=== PATIENT | female | born 1925 | race Caucasian/White ===

== ENCOUNTER 2016-05-27 13:42 | Inpatient (IN) | payer OTHER ==
--- NOTE | 2016-05-27 17:49 | EDPRACDOC ---
- General Information Information Source: Patient - History of Present Illness Onset: CORRAL BOSS Medications/Treatment [facility]OSS EMS Treatment BLS HPI: PT PRESENTS TODAY WITH INCREASING WEAKNESS AND PAIN TO RIGHT LOWER EXTREMITY X 10 DAYS. PT STATES THAT SHE HAS BEEN RECEIVING IM INJECTIONS OF ROCEPHIN AT [facility]. 10 DAYS AGO, SHE RECEIVED AN INJECTION IN THE GLUTEUS THAT CAUSED SEVERE PAIN THAT RADIATED DOWN RIGHT LEG. INCREASING PAIN/WEAKNESS SINCE. DENIES INCONTINENCE, FEVER, DYSURIA. NO APPARENT DISTRESS. FAMILY VERY CONCERNED THAT PTS AMBULATION HAS GRADUALLY WORSENED OVER THE PAST 10 DAYS. Mechanism: Reports: Penetrating Trauma Circumstances: Reports: Other History of: Reports: None Severity: Reports: Moderate Able to Bear Weight: No Associated Signs & Symptoms: Reports: Numbness Pain In: Reports: Hip, Thigh <Josefina Calles - Last Filed: 05/27/16 17:52> - History of Present Illness Medications/Treatment CORRAL BOSS EMS Treatment BLS <Jhonny Carvajal - Last Filed: 05/27/16 20:18> - General Information Chief Complaint: Lower Leg Pain Stated Complaint: INJECTION IN RT HIP & IT HIT A NERVE Time Seen by Provider: 05/27/16 16:48 Home Medications: Home Medications Cholecalciferol (Vitamin D3) [Vitamin D3] 1,000 unit PO DAILY 05/27/16 Gabapentin [Neurontin] 100 mg PO HS 05/27/16 Oxybutynin [Ditropan] 5 mg PO BID 05/27/16 Oxycodone Immediate Release [Oxycodone Immediate Release (OxyIR)] 10 mg PO Q6H PRN 05/27/16 Ranitidine [Zantac] 150 mg PO HS 05/27/16 Allergies/Adverse Reactions: Allergies Allergy/AdvReac Type Severity Reaction Status Date / Time morphine Allergy Nausea/Vomi Verified 05/27/16 13:54 ting tramadol Allergy Nausea/Vomi Verified 05/27/16 13:54 ting - Treatment Prior to ED Arrival Reported Medications/Treatment [facility]OSS EMS Treatment BLS <Josefina Calles - Last Filed: 05/27/16 17:52> - Treatment Prior to ED Arrival Reported Medications/Treatment [facility]RAL [facility]OSS EMS Treatment BLS <Jhonny Carvajal - Last Filed: 05/27/16 20:18> ED Past Medical History - History Reviewed Yes Nurses notes reviewed and agree except as marked - Patient Medical History GI/ History: Reports: Gastroesophageal Reflux Psychological History: Denies: Depression Systemic History: Denies: Cancer - Social Medical History Smoking Status: Never smoker <Josefina Calles - Last Filed: 05/27/16 17:52> EDM Review of Systems - Review of Systems ROS Negative Except as Marked: Yes All systems reviewed and were negative except as marked Constitutional: No Symptoms Reported Respiratory: No Symptoms Reported Cardiovascular: No Symptoms Reported Gastrointestinal: No Symptoms Reported Genitourinary: No Symptoms Reported Neurological: Gait Difficulty, Numbness, Weakness Musculoskeletal: Femur Integumentary: No Symptoms Reported <Josefina Calles Neha - Last Filed: 05/27/16 17:52> - Physical Exam Constitutional: Alert (Awake), No apparent distress Oriented to: Time, Person, Place Last recorded Vital Signs: Last Vital Signs Temp 97.4 F L 05/27/16 13:46 Pulse 58 L 05/27/16 16:55 Resp 18 05/27/16 16:55 BP 167/77 05/27/16 16:55 Pulse Ox 98 05/27/16 16:55 Oxygen Pulse Oxygen Saturation 98 O2 Device Room Air Oxygen Flow Rate Fraction of Inspired Oxygen ( FIO2) - HEENT Head: Normal Eye Exam: Normal Neck: Normal, Denies Pain, Midline - Respiratory/Cardiovascular Respiratory: Normal - CTA Cardiovascular: Normal - GI Auscultation: Normal Palpation: Normal Tenderness: Non tender - Musculoskeletal Back: Other (NOTED INJECTION WOUND TO RIGHT BUTTOCK; NO SWELLING/DISCHARGE OR SIGNS OF INFECTION AT THE SITE; PT STATES THAT THE BUTTOCK IS "SORE") Extremities: Normal, Other (NOTE: FEMORAL/PEDAL PULSES EQUAL AND NORMAL DERMATOMAL SENSATIONS INTACT DORSI/PLANTAR FLEXION STRONG/EQUAL HIP EXTENSION EQUAL, BUT WITH PAIN TO RIGHT HIP; SKIN P/W/D W/OUT PETECHIA/SWELLING) - Integumentary Skin: Normal Lymphatics: Normal - Neurologic Cerebellar: Normal Mood Description: Normal Thought: Coherent Perception: Normal <Josefina Calles - Last Filed: 05/27/16 17:52> - Physical Exam Last recorded Vital Signs: Last Vital Signs Temp 97.4 F L 05/27/16 13:46 Pulse 60 05/27/16 19:33 Resp 18 05/27/16 19:33 BP 181/80 H 05/27/16 19:33 Pulse Ox 97 05/27/16 19:33 Oxygen Pulse Oxygen Saturation 97 O2 Device Room Air Oxygen Flow Rate Fraction of Inspired Oxygen ( FIO2) <Jhonny Carvajal - Last Filed: 05/27/16 20:18> - Additional Information CARE ENDORSED TO DR. CARVAJAL AT 1800. NOTE: FEMORAL/PEDAL PULSES EQUAL AND NORMAL DERMATOMAL SENSATIONS INTACT DORSI/PLANTAR FLEXION STRONG/EQUAL HIP EXTENSION EQUAL, BUT WITH PAIN TO RIGHT HIP SKIN P/W/D W/OUT PETECHIA/SWELLING <Josefina Calles - Last Filed: 05/27/16 17:52> - Results 05/27/16 18:09 05/27/16 18:09 WBC 13.8 xk/uL (3.8-10.8) H 05/27/16 18:09 RBC 3.88 xM/uL (4.20-5.40) L 05/27/16 18:09 Hgb 11.3 g/dL (12.0-16.0) L 05/27/16 18:09 Hct 33.7 % (36-47) L 05/27/16 18:09 MCV 87 fL (81-99) 05/27/16 18:09 MCH 29.1 pg (27-32) 05/27/16 18:09 MCHC 33.5 g/dl (33-36) 05/27/16 18:09 RDW 13.6 % (11.5-14.5) 05/27/16 18:09 Plt Count 282 xk/uL (130-400) 05/27/16 18:09 MPV 9.1 fL (7.4-10.4) 05/27/16 18:09 Neut % (Auto) 78.1 % (45-76) H 05/27/16 18:09 Lymph % (Auto) 4.1 % (17-44) L 05/27/16 18:09 [place] % (Auto) 17.6 % (3-10) H 05/27/16 18:09 Eos % (Auto) 0.0 % (0-5) 05/27/16 18:09 Baso % (Auto) 0.2 % (0-2) 05/27/16 18:09 Absolute Neuts (auto) 10.76 xk/uL (1.7-8.2) H 05/27/16 18:09 Absolute Lymphs (auto) 0.55 xk/uL (0.65-4.75) L 05/27/16 18:09 Sodium 120 mEq/L (137-146) L* 05/27/16 18:09 Potassium 5.3 mEq/L (3.5-5.1) H 05/27/16 18:09 Chloride 87 mEq/L (98-107) L 05/27/16 18:09 Carbon Dioxide 26 mMOL/L (22-33) 05/27/16 18:09 Anion Gap 12 mEq/L (8-16) 05/27/16 18:09 BUN 47 MG/DL (7-17) H 05/27/16 18:09 Creatinine 1.60 MG/DL (0.52-1.04) H 05/27/16 18:09 Estimated GFR (MDRD) 30 mL/min (>=60) L 05/27/16 18:09 Glucose 145 MG/DL (70-99) H 05/27/16 18:09 Calculated Osmolality 247 MOs/Kg (270-290) L 05/27/16 18:09 Calcium 8.6 MG/DL (8.4-10.2) 05/27/16 18:09 Corrected Calcium 9.1 MG/DL (8.4-10.2) 05/27/16 18:09 Total Bilirubin 1.0 MG/DL (0.2-1.3) 05/27/16 18:09 AST 42 IU/L (14-36) H 05/27/16 18:09 ALT 30 IU/L (9-52) 05/27/16 18:09 Alkaline Phosphatase 99 IU/L (55-165) 05/27/16 18:09 Total Protein 7.0 G/DL (6.3-8.2) 05/27/16 18:09 Albumin 3.5 G/DL (3.5-5.0) 05/27/16 18:09 Urine Color Yellow 05/27/16 18:54 Urine Clarity Clear 05/27/16 18:54 Urine pH 6.0 (5.0-8.0) 05/27/16 18:54 Ur Specific [place] 1.010 (1.003-1.035) 05/27/16 18:54 Urine Protein Neg (NEG/TRACE) 05/27/16 18:54 Urine Glucose (UA) Neg (NEGATIVE) 05/27/16 18:54 Urine Ketones Neg (NEGATIVE) 05/27/16 18:54 Urine Occult Blood Neg (NEG/TRACE) 05/27/16 18:54 Urine Nitrite Neg (NEGATIVE) 05/27/16 18:54 Urine Bilirubin Neg (NEGATIVE) 05/27/16 18:54 Urine Urobilinogen 0.2 MG/DL (0-1) 05/27/16 18:54 Ur Leukocyte Esterase Neg (NEGATIVE) 05/27/16 18:54 Urine RBC 2-5 (0-5) 05/27/16 18:54 Urine WBC 20-30 (0-5) H 05/27/16 18:54 Ur Epithelial Cells Occ 05/27/16 18:54 Urine Bacteria Few (NEG/FEW) 05/27/16 18:54 Lab Results 05/27/16 05/27/16 05/27/16 18:54 18:09 18:09 WBC 13.8 H RBC 3.88 L Hgb 11.3 L Hct 33.7 L MCV 87 MCH 29.1 MCHC 33.5 RDW 13.6 Plt Count 282 MPV 9.1 Neut % (Auto) 78.1 H Lymph % (Auto) 4.1 L [place] % (Auto) 17.6 H Eos % (Auto) 0.0 Baso % (Auto) 0.2 Absolute Neuts (auto) 10.76 H Absolute Lymphs (auto) 0.55 L Sodium 120 L* Potassium 5.3 H Chloride 87 L Carbon Dioxide 26 Anion Gap 12 BUN 47 H Creatinine 1.60 H Estimated GFR (MDRD) 30 L Glucose 145 H Calculated Osmolality 247 L Calcium 8.6 Corrected Calcium 9.1 Total Bilirubin 1.0 AST 42 H ALT 30 Alkaline Phosphatase 99 Total Protein 7.0 Albumin 3.5 Urine Color Yellow Urine Clarity Clear Urine pH 6.0 Ur Specific [place] 1.010 Urine Protein Neg Urine Glucose (UA) Neg Urine Ketones Neg Urine Occult Blood Neg Urine Nitrite Neg Urine Bilirubin Neg Urine Urobilinogen 0.2 Ur Leukocyte Esterase Neg Urine RBC 2-5 Urine WBC 20-30 H Ur Epithelial Cells Occ Urine Bacteria Few <Jhonny Carvajal - Last Filed: 05/27/16 20:18> <Josefina Calles - Last Filed: 05/27/16 17:52> - Departure Yes I personally saw and evaluated the patient. Disposition: Admit IP To This Hospital Education/Counseling Given To: Patient Education/Counseling Given Regarding: Diagnosis, Treatment, Prognosis Decision to Admit Time: 20:18 Decision to admit date: 05/27/16 Decision to admit: from ED - Physician Consulted Hospitalist Time Called: 20:18 Provider Called: Yefri Ac Time Mailroom Courier Returned Call: 20:18 <Jhonny Carvajal - Last Filed: 05/27/16 20:18> - Departure Condition: Fair Final Diagnosis: Ambulatory dysfunction, Hyponatremia Fracture of left superior pubic ramus Qualifiers: Encounter type: initial encounter Fracture type: closed Qualified Code(s): S32.512A - Fracture of superior rim of left pubis, initial encounter for closed fracture Fracture of inferior pubic ramus Qualifiers: Encounter type: initial encounter Fracture type: closed Laterality: left Qualified Code(s): S32.592A - Other specified fracture of left pubis, initial encounter for closed fracture Sacral insufficiency fracture Qualifiers: Encounter type: initial encounter Qualified Code(s): M84.48XA - Pathological fracture, other site, initial encounter for fracture Referrals: Guanakito Flores MD [Primary Care Provider] - One Week
[2016-05-27] MEDS ORDERED: ONDANSETRON HCL 4 MG/2 ML VIAL IV ONE (17:53)
[2016-05-27] MEDS ORDERED: HYDROmorphone 1 MG INJECTION IV ONE (17:53)
[2016-05-27 18:26] LABS: AUTOMATED BASOPHIL 0.2 % (0-2); AUTOMATED LYMPH 4.1 % (17-44); AUTOMATED MONOCYTE 17.6 % (3-10); AUTOMATED NEUTROPHIL 78.1 % (45-76); MPV 9.1 fL (7.4-10.4)
[2016-05-27 18:36] LABS: BLOOD UREA NITROGEN 47 MG/DL (7-17); CALC CORRECTED 9.1 MG/DL (8.4-10.2); CALCIUM 8.6 MG/DL (8.4-10.2); CALCULATED OSMOLALITY 247 MOs/Kg (270-290); CHLORIDE 87 mEq/L (98-107); GLUCOSE 145 MG/DL (70-99)
[2016-05-27 18:46] LABS: SODIUM LEVEL 120 mEq/L (137-146)
[2016-05-27 19:22] LABS: WBC/URINE 20-30 (0-5)
[2016-05-27 19:24] LABS: LEUKOCYTES/URINE NEG (NEGATIVE); NITRITE/URINE NEG (NEGATIVE); URINE OCCULT BLOOD NEG (NEG/TRACE)
--- NOTE | 2016-05-27 19:40 | DIRPT ---
CLINICAL DATA: 89-year-old female with right lower extremity weakness and right hip pain after intramuscular injection of antibiotic 10 days ago. Initial encounter. EXAM: CT PELVIS WITHOUT CONTRAST TECHNIQUE: Multidetector CT imaging of the pelvis was performed following the standard protocol without intravenous contrast. COMPARISON: CT Abdomen and Pelvis 01/27/2008. FINDINGS: Comminuted fractures of the superior and inferior pubic rami on the left at the confluence near the pubic symphysis. Underlying osteopenia. Bilateral sacral insufficiency fractures, more apparent on the left (series 3, image 19). SI joints remain within normal limits. Advanced degenerative changes in the visible lower lumbar spine. No acetabular or hip fracture identified bilaterally. No right pubic ramus fracture identified. No proximal femur fracture identified. Visualized proximal lower extremity noncontrast muscle groups appear within normal limits. No fluid collection identified. Diffuse body wall stranding suggesting a degree of anasarca. No pelvic free fluid. Surgically absent uterus and diminutive or absent adnexa. Gaseous distension of the rectum with some stool. Retained stool throughout the sigmoid colon with moderate to severe diverticulosis, but no active inflammation identified. Negative urinary bladder. Retained stool throughout the other visible colonic segments. The appendix appears normal. No dilated distal small bowel. No significant large vessel atherosclerosis identified. No IV contrast administered. IMPRESSION: 1. Bilateral sacral insufficiency fractures. Comminuted comminuted medial Left superior and inferior pubic ramus fractures. No other acute osseous abnormality identified. 2. Diffuse body wall stranding suggesting anasarca. No other soft tissue abnormality identified about the pelvis. 3. Diverticulosis of the sigmoid colon. Otherwise negative visualized pelvic viscera. Electronically Signed By: Leesa Heart M.D. On: 05/27/2016 19:38
--- NOTE | 2016-05-27 20:28 | HISTPHYS ---
- Chief Complaint can't walk, weakness - History of Present Illness PRIMARY CARE PROVIDER: Delaney HPI: The patient is an 89 yo woman who presents with weakness and inability to walk. She was in her usual state of health until this week, when she started becoming weaker especially in the legs. She is at the point that she cannot walk at all. The patient has some mild dementia. She does not remember falling. She does admit to some pain in both hips. A relative who is present gives additional history: the patient has had more fatigue and somnolence lately. She has not been eating or drinking well at all. Onset: this week. Duration: Progressively worsening. Location: Bilateral lower extremities, hips, and pelvis. Radiation: None. Character: Generalized weakness of both lower extremities with inability to walk. Bilateral pain in the hips and pelvis. Alleviated by: Nothing. Exacerbated by: Nothing. Associated Symptoms: Weakness in both legs. Inability to walk. Bilateral hip and pelvis pain. Fatigue. Somnolence. Markedly decreased PO intake. Relative reports the patient has frequent urinary tract infections and is just finishing up 6 days of nitrofurantoin. Treatments: none at home except usual medications and also nitrofurantoin as above. - Medical History GI/ History: Reports: Urinary Tract Infection (recurrent), Gastroesophageal Reflux (Dr. Berman EGD 05/11/08 Schatzki ring, previous ulcer healed, hiatal hernia.), Diverticulosis (Dr. Berman colonoscopy 02/17/08. Sm int hemorrhoids, diverticulosis.) Musculoskeletal History: Reports: Arthritis (and compression fractures) Systemic History: Denies: Cancer Psychological History: Denies: Depression May have some mild dementia. 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 - Surgical History Reports: Hysterectomy (Abdominal hysterectomy with bilateral salpingo- oophorectomy.), Other (Total knee arthroplasty) - Medictions/Allergies Allergies morphine Allergy (Verified 05/27/16 13:54) Nausea/Vomiting tramadol Allergy (Verified 05/27/16 13:54) Nausea/Vomiting Current Medication List: Reviewed Home Medications Cholecalciferol (Vitamin D3) [Vitamin D3] 1,000 unit PO DAILY 05/27/16 Gabapentin [Neurontin] 100 mg PO HS 05/27/16 Oxybutynin [Ditropan] 5 mg PO BID 05/27/16 Oxycodone Immediate Release [Oxycodone Immediate Release (OxyIR)] 10 mg PO Q6H PRN 05/27/16 Ranitidine [Zantac] 150 mg PO HS 05/27/16 - Family History Reports: Cardiac Disorders (Heart disease). 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 - Review of Systems GENERAL: No Fever, chills, or diaphoresis. Positive for fatigue/malaise. Decreased PO intake. HEENT: No ear pain or discharge. No nasal discharge or bleeding. No throat pain or swelling. No eye pain or eye redness. RESPIRATORY: No cough, wheezing, or shortness of breath. CARDIOVASCULAR: No chest pain or palpitations. GI: No abdominal pain, nausea, vomiting, diarrhea, constipation, or bloody stool. NEUROLOGICAL: No headache or focal weakness. INTEGUMENT: no rashes, itching, or lesions. LYMPHATIC SYSTEM: no lymph node swelling or pain. MUSCULOSKELETAL: Weakness in both legs. Inability to walk. Bilateral hip and pelvis pain. No joint swelling. GENITOURINARY: No dysuria or hematuria. ENDOCRINE: No polyuria or polydipsia. HEME: No chronic anemia, bleeding, or easy bruising. - Physical Exam Vital Signs: Initial Vitals Temperature 97.4 F L 05/27/16 13:46 Pulse Rate 57 L 05/27/16 13:46 Respiratory Rate 20 05/27/16 13:46 Blood Pressure 176/80 05/27/16 13:46 Pulse Oxygen Saturation 99 05/27/16 13:46 Vital Signs - 24 hr 05/27/16 05/27/16 05/27/16 13:46 16:55 18:08 Temperature 97.4 F L Pulse Rate 57 L 58 L 64 Respiratory 20 18 18 Rate Blood Pressure 176/80 167/77 185/81 H Pulse Oxygen 99 98 97 Saturation 05/27/16 19:33 Temperature Pulse Rate 60 Respiratory 18 Rate Blood Pressure 181/80 H Pulse Oxygen 97 Saturation Weight: 59 kg Height: 5 feet 1 inch BMI: 24.6 - Other Exam Other Exam Findings: GENERAL: Ill-appearing, well nourished, in acute distress. HEENT: Normocephalic, atraumatic; pupils equal and round. Nares patent, without discharge or bleeding. No oropharyngeal lesions or erythema. Mucous membranes are dry. NECK: is supple, no masses, trachea midline. RESPIRATORY: Clear to auscultation bilaterally. Chest wall movements are symmetric. No use of accessory muscles to breathe. No wheezing, rales, rhonchi. CARDIOVASCULAR: Normal S1, S2. No murmurs, rubs, or gallops. PMI non-displaced. Carotids: no carotid bruits. No bradycardia or tachycardia. DP pulses 2+ bilaterally. GI: soft, nontender, non-distended, normal active bowel sounds. No hepatosplenomegaly. INTEGUMENT: Clean, dry, and intact. No rashes. No lesions. MUSCULOSKELETAL: Moving all extremities. No cyanosis. No clubbing. Edema: 1+ lower extremity edema bilaterally. Tenderness over left and right pelvis bilaterally. NEUROLOGICAL: Cranial nerves 2-12 grossly intact. Reflexes: 2+ bilaterally. Babinski: toes downgoing bilaterally. Intact Finger to nose. Sensory grossly intact to light touch. Intact rapid alternating movements bilaterally. No pronator drift. Motor 5/5 in upper extremities. 2/5 in lower extremities and 3+/5 for plantar flexion, symmetric. PSYCHIATRIC: Fully oriented. Normal and appropriate affect. LYMPHATIC: No cervical lymphadenopathy. No supraclavicular lymphadenopathy. - Lab Results Laboratory Results - last 24 hr 05/27/16 05/27/16 05/27/16 18:09 18:09 18:54 WBC 13.8 H RBC 3.88 L Hgb 11.3 L Hct 33.7 L MCV 87 MCH 29.1 MCHC 33.5 RDW 13.6 Plt Count 282 MPV 9.1 Neut % (Auto) 78.1 H Lymph % (Auto) 4.1 L Casey % (Auto) 17.6 H Eos % (Auto) 0.0 Baso % (Auto) 0.2 Absolute Neuts (auto) 10.76 H Absolute Lymphs (auto) 0.55 L Sodium 120 L* Potassium 5.3 H Chloride 87 L Carbon Dioxide 26 Anion Gap 12 BUN 47 H Creatinine 1.60 H Estimated GFR (MDRD) 30 L Glucose 145 H Calculated Osmolality 247 L Calcium 8.6 Corrected Calcium 9.1 Total Bilirubin 1.0 AST 42 H ALT 30 Alkaline Phosphatase 99 Total Protein 7.0 Albumin 3.5 Urine Color Yellow Urine Clarity Clear Urine pH 6.0 Ur Specific [place] 1.010 Urine Protein Neg Urine Glucose (UA) Neg Urine Ketones Neg Urine Occult Blood Neg Urine Nitrite Neg Urine Bilirubin Neg Urine Urobilinogen 0.2 Ur Leukocyte Esterase Neg Urine RBC 2-5 Urine WBC 20-30 H Ur Epithelial Cells Occ Urine Bacteria Few - Diagnostic Findings Chest x-ray, viewed personally: EXAM: PORTABLE CHEST 1 VIEW COMPARISON: Chest radiograph 06/13/2007 FINDINGS: Cardiomediastinal silhouette is normal. Mediastinal contours appear intact. There is no evidence of focal airspace consolidation, pleural effusion or pneumothorax. Osseous structures are without acute abnormality. Vertebroplasty of the lower thoracic spine is seen. Soft tissues are grossly normal. IMPRESSION: No active disease. CT Pelvis: CLINICAL DATA: 89-year-old female with right lower extremity weakness and right hip pain after intramuscular injection of antibiotic 10 days ago. Initial encounter. EXAM: CT PELVIS WITHOUT CONTRAST TECHNIQUE: Multidetector CT imaging of the pelvis was performed following the standard protocol without intravenous contrast. COMPARISON: CT Abdomen and Pelvis 01/27/2008. FINDINGS: Comminuted fractures of the superior and inferior pubic rami on the left at the confluence near the pubic symphysis. Underlying osteopenia. Bilateral sacral insufficiency fractures, more apparent on the left (series 3, image 19). SI joints remain within normal limits. Advanced degenerative changes in the visible lower lumbar spine. No acetabular or hip fracture identified bilaterally. No right pubic ramus fracture identified. No proximal femur fracture identified. Visualized proximal lower extremity noncontrast muscle groups appear within normal limits. No fluid collection identified. Diffuse body wall stranding suggesting a degree of anasarca. No pelvic free fluid. Surgically absent uterus and diminutive or absent adnexa. Gaseous distension of the rectum with some stool. Retained stool throughout the sigmoid colon with moderate to severe diverticulosis, but no active inflammation identified. Negative urinary bladder. Retained stool throughout the other visible colonic segments. The appendix appears normal. No dilated distal small bowel. No significant large vessel atherosclerosis identified. No IV contrast administered. IMPRESSION: 1. Bilateral sacral insufficiency fractures. Comminuted comminuted medial Left superior and inferior pubic ramus fractures. No other acute osseous abnormality identified. 2. Diffuse body wall stranding suggesting anasarca. No other soft tissue abnormality identified about the pelvis. 3. Diverticulosis of the sigmoid colon. Otherwise negative visualized pelvic viscera. - Assessment (1) Hyponatremia E87.1 - HYPO-OSMOLALITY AND HYPONATREMIA Acute Present on Admission: Yes (2) Fracture of inferior pubic ramus S32.599A - OTH FRACTURE OF UNSP PUBIS, INIT ENCNTR FOR CLOSED FRACTURE Acute Present on Admission: Yes Qualifiers: Encounter type: initial encounter Fracture type: closed Laterality: left Fracture healing: F Qualified Code(s): S32.592A - Other specified fracture of left pubis, initial encounter for closed fracture Noted on CT. Is likely the cause of her inability to walk. Plan: Consult orthopedic surgeon for opinion. If orthopedic surgeon approves, consider physical therapy evaluation and treatment. P.r.n. IV pain medication. (3) Fracture of left superior pubic ramus S32.512A - FRACTURE OF SUPERIOR RIM OF LEFT PUBIS, INIT FOR CLOS FX Acute Present on Admission: Yes Qualifiers: Encounter type: initial encounter Fracture type: closed Fracture healing : F Qualified Code(s): S32.512A - Fracture of superior rim of left pubis, initial encounter for closed fracture Noted on CT. Is likely the cause of her inability to walk. Plan: Consult orthopedic surgeon for opinion. If orthopedic surgeon approves, consider physical therapy evaluation and treatment. P.r.n. IV pain medication. (4) Sacral insufficiency fracture M84.48XA - PATHOLOGICAL FRACTURE, OTHER SITE, INIT ENCNTR FOR FRACTURE Acute Present on Admission: Yes Qualifiers: Encounter type: initial encounter Fracture healing: F Qualified Code(s): M84.48XA - Pathological fracture, other site, initial encounter for fracture Noted on CT. Sacral fracture. Could be pathological, but could also be related to a fall that patient does not remember. Could be contributing to her inability to walk. Plan: Consult orthopedic surgeon for opinion. If orthopedic surgeon approves, consider physical therapy evaluation and treatment. P.r.n. IV pain medication. (5) Ambulatory dysfunction R26.2 - DIFFICULTY IN WALKING, NOT ELSEWHERE CLASSIFIED Acute Present on Admission: Yes Plan: Consult orthopedic surgeon for opinion. If orthopedic surgeon approves, consider physical therapy evaluation and treatment. (6) Leukocytosis D72.829 - ELEVATED WHITE BLOOD CELL COUNT, UNSPECIFIED Acute Present on Admission: Yes Qualifiers: Leukocytosis type: L Mildly elevated WBC. Recent UTI but completed course of Rocephin 2 days ago. No fever or chills. Plan: Cultures ordered. Consider antibiotics only if patient develops a fever, or cultures are positive. (7) CKD (chronic kidney disease) stage 4, GFR 15-29 ml/min N18.4 - CHRONIC KIDNEY DISEASE, STAGE 4 (SEVERE) Chronic Present on Admission: Yes Baseline GF is 17-28. Admission GFR is 30. Baseline Cr is 1.9 - 2.4. Admission Cr is 1.6. Plan: CKD with slightly improved Cr. Avoid nephrotoxins. Monitor Cr levels. Case Care Discussed with: Patient, Family, Nursing Staff
--- NOTE | 2016-05-27 20:33 | DIRPT ---
CLINICAL DATA: Shortness of breath. EXAM: PORTABLE CHEST 1 VIEW COMPARISON: Chest radiograph 06/13/2007 FINDINGS: Cardiomediastinal silhouette is normal. Mediastinal contours appear intact. There is no evidence of focal airspace consolidation, pleural effusion or pneumothorax. Osseous structures are without acute abnormality. Vertebroplasty of the lower thoracic spine is seen. Soft tissues are grossly normal. IMPRESSION: No active disease. Electronically Signed By: Eddie Bucio M.D. On: 05/27/2016 20:31
[2016-05-27] MEDS ORDERED: HYDROmorphone 1 MG INJECTION IV PRN (20:35)
[2016-05-27] MEDS ORDERED: hydrALAZINE 20 MG/ML VIAL IV PRN (20:35)
[2016-05-27] MEDS ORDERED: BISACODYL 5 MG TAB PO PRN (20:37)
[2016-05-27] MEDS ORDERED: TEMAZEPAM 15 MG CAP PO PRN (20:37)
[2016-05-27] MEDS ORDERED: BENZONATATE 100 MG PERLES PO PRN (20:37)
[2016-05-27] MEDS ORDERED: Docusate Sodium 100 MG CAP PO PRN (20:37)
[2016-05-27] MEDS ORDERED: SIMETHICONE 80 MG TAB PO PRN (20:37)
[2016-05-27] MEDS ORDERED: ONDANSETRON HCL 4 MG/2 ML VIAL IV PRN (20:37)
[2016-05-27] MEDS ORDERED: ACETAMINOPHEN 325 MG/TAB TABLET PO PRN (20:37)
[2016-05-27] MEDS ORDERED: SENNA CONCENTRATE TAB PO PRN (20:37)
[2016-05-27] MEDS ORDERED: PROMETHAZINE 25 MG/ML VIAL IV PRN (20:37)
[2016-05-27] MEDS ORDERED: GUAIFEN 100 MG-DEXTROMETH 10 MG PER 5 ML PO PRN (20:37)
[2016-05-27] MEDS ORDERED: ACETAMINOPHEN 325 MG SUPP PR PRN (20:37)
[2016-05-27 23:39] VITALS: BMI 22.2
[2016-05-28] MEDS: OXYBUTYNIN 5 MG TAB PO SCH ×3 (00:56→20:02)
[2016-05-28] MEDS: RANITIDINE 150 MG TAB PO SCH ×2 (00:56→20:03)
[2016-05-28] MEDS: GABAPENTIN 100 MG CAP PO SCH ×2 (00:56→20:03)
[2016-05-28] MEDS: OXYCODONE HCL 5 MG TABLET PO PRN ×2 (00:58→13:41)
[2016-05-28] MEDS ORDERED: Aluminum;Magnesium;Simethicone 30 ML UDC PO PRN (01:08)
[2016-05-28] MEDS: NS 1,000 ML IV SCH ×5 (01:28→17:09)
[2016-05-28] MEDS: ENOXAPARIN 30 MG/0.3 ML PFS SQ SCH ×2 (01:28→17:08)
[2016-05-28] MEDS ORDERED: ENOXAPARIN 40 MG/0.4 ML PFS SQ SCH (02:00)
[2016-05-28 07:19] LABS: MPV 9.3 fL (7.4-10.4)
[2016-05-28 07:43] LABS: BLOOD UREA NITROGEN 43 MG/DL (7-17); CALCIUM 8.1 MG/DL (8.4-10.2); CALCULATED OSMOLALITY 251 MOs/Kg (270-290); CHLORIDE 92 mEq/L (98-107); GLUCOSE 68 MG/DL (70-99); SODIUM LEVEL 125 mEq/L (137-146)
[2016-05-28] MEDS: CHOLECALCIFEROL 1000 UNITS TAB PO SCH (08:31)
--- NOTE | 2016-05-28 10:08 | PCM.ORTHCO ---
Consultation Date: 05/28/16 Reason for Consult: Fracture - History of Present Illness Mrs Gray is a pleasant 89-year-old female who was seen in consultation this morning for bilateral sacral insufficiency fracture and left-sided pubic rami fractures. Patient states that she has been treated with IV intramuscular injections for urinary tract infection over the past 7 days. After her last injection few days ago she had acute worsening pain in the hip and pelvis area. Pain progressed to the point where she was unable to bear weight or walk. She denies having any fall or trauma. She describes the location of the pain is the groin area of the right hip and posterior aspect of bilateral hips. Pain is aggravated with any kind of weight-bearing activity and is relieved with rest. Patient is a good historian. She lives independently at home and goes to [facility] for physical therapy. Chief Complaint: can't walk, weakness - Past Medical and Surgical History GI/ History: Reports: Urinary Tract Infection (recurrent), Gastroesophageal Reflux (Dr. Berman EGD 05/11/08 Schatzki ring, previous ulcer healed, hiatal hernia.), Diverticulosis (Dr. Berman colonoscopy 02/17/08. Sm int hemorrhoids, diverticulosis.) Systemic History: Denies: Cancer Musculoskeletal History: Reports: Arthritis (and compression fractures) Psychological History: Denies: Depression, Alcoholism, Substance Use Disorder Past Surgical History: Reports: Hysterectomy (Abdominal hysterectomy with bilateral salpingo-oophorectomy.), Other (Total knee arthroplasty) Allergies morphine Allergy (Verified 05/27/16 13:54) Nausea/Vomiting tramadol Allergy (Verified 05/27/16 13:54) Nausea/Vomiting Home Medications Cholecalciferol (Vitamin D3) [Vitamin D3] 1,000 unit PO DAILY 05/27/16 Gabapentin [Neurontin] 100 mg PO HS 05/27/16 Oxybutynin [Ditropan] 5 mg PO BID 05/27/16 Oxycodone Immediate Release [Oxycodone Immediate Release (OxyIR)] 10 mg PO Q6H PRN 05/27/16 Ranitidine [Zantac] 150 mg PO HS 05/27/16 - Social History Smoking Status: Never smoker Social History: Denies: Alcohol Use, Substance Use Disorder - Family History Reports: Cardiac Disorders (Heart disease). Denies: Cancer (No family history of colon cancer.) - Review of Systems Yes All systems reviewed and were negative except as marked Musculoskeletal:: Other (Bilateral hip pain. Right groin pain.) - Physical Exam Vital Signs: Initial Vitals Temperature 97.4 F L 05/27/16 13:46 Pulse Rate 57 L 05/27/16 13:46 Respiratory Rate 20 05/27/16 13:46 Blood Pressure 176/80 05/27/16 13:46 Pulse Oxygen Saturation 99 05/27/16 13:46 Constitutional: No apparent distress, Alert Oriented to: Time, Person, Place - HEENT Head: Normal - Musculoskeletal On examination his lower extremities they are normal to inspection. No gross deformity or rotational abnormality is noted. She does have healed anterior incisions of both knees from prior total knee replacement. There is a negative hip logroll test bilaterally. Patient has 120 of passive flexion bilaterally of the hips, 30 of external rotation and 20 of internal rotation of bilateral hips. She has no reproducible groin pain or hip pain with passive range of motion of her hips. She does have mild tenderness palpation posteriorly in the area of the sacrum/SI joints. Negative pelvic compression test. No open wounds or abrasions. She is able to perform straight leg raise without difficulty. 5/5 plantar flexion, dorsiflexion, EHL motor function bilateral lower extremities. Sensation intact distally L4-S1 bilateral lower extremity. Palpable dorsalis pedis and posterior tibial pulses bilateral lower extremity. - Lab Results 05/28/16 06:35 05/28/16 06:35 - Diagnostic Findings CT scan of the patient's pelvis performed on 05/27/2016 at [facility] was personally reviewed. X-rays do demonstrate nondisplaced bilateral sacral ala insufficiency fractures, zone 1. Also noted are comminuted and minimally displaced fractures of the left superior and inferior pubic ramus. DEXA bone density test done on 05/10/2016 also was personally reviewed revealing a T-score of-4.7 - Assessment/Plan (1) Fracture of inferior pubic ramus S32.599A - OTH FRACTURE OF UNSP PUBIS, INIT ENCNTR FOR CLOSED FRACTURE Acute initial encounter closed left F S32.592A - Other specified fracture of left pubis, initial encounter for closed fracture (2) Fracture of left superior pubic ramus S32.512A - FRACTURE OF SUPERIOR RIM OF LEFT PUBIS, INIT FOR CLOS FX Acute initial encounter closed F S32.512A - Fracture of superior rim of left pubis, initial encounter for closed fracture (3) Sacral insufficiency fracture M84.48XA - PATHOLOGICAL FRACTURE, OTHER SITE, INIT ENCNTR FOR FRACTURE Acute initial encounter F M84.48XA - Pathological fracture, other site, initial encounter for fracture Case Care Discussed with: Patient, Consultants, Family Plan: 1. Bilateral sacral ala zone 1 insufficiency fractures 2. Left superior and inferior pubic ramus fracture 3. Osteoporosis with T-score-4.7 and multiple insufficiency fractures -patient's physical exam and imaging studies were discussed with her in the clinic at today's visit. Patient does have significant osteoporosis and I would classify these fractures as pathological from her severe osteoporosis. Recommend checking a vitamin-D level. Would also consider adding an additional anti osteoclastic vs anabolic medications such as Forteo. -she may be weight-bearing as tolerated/protected weight-bearing with a walker. -okay to perform [id number] exercises with physical therapy. Recommend out of bed to chair or transfers only until her pain improves. -follow-up in 4-6 weeks for re-evaluation and repeat x-rays at that time as an outpatient
--- NOTE | 2016-05-28 10:14 | GENMEDPROG ---
Chief Complaint: hyponatremia, inferior pubic rami fx, superior pubic rami fx, sacral fracture, dementia Subjective Note: Patient does not recall falling, but fracture pattern is that of one who slipped and fell onto buttocks in sitting position. She has complained of pain for 2-3 weeks. Fractures are probably subacute. Current Medication List: Reviewed Currently: Reports: Jose M PT/OT, Other (pain in buttocks/hips). Denies: Ambulating - Physical Examination Vital Signs and I&O: Last Vital Signs Temp 97.9 F 05/28/16 10:11 Pulse 65 05/28/16 10:11 Resp 18 05/28/16 10:11 BP 118/66 05/28/16 10:11 Pulse Ox 95 05/28/16 10:11 Oxygen Pulse Oxygen Saturation 95 O2 Device Room Air Oxygen Flow Rate Fraction of Inspired Oxygen ( FIO2) Intake & Output 05/25/16 05/26/16 05/27/16 05/28/16 23:59 23:59 23:59 23:59 Intake Total 1304 Output Total 675 Balance 629 Patient's weight 53.433 kg General: Alert, Cooperative, Mild distress, Weakness HEENT: Normal, PERRLA, EOMI, Anicteric Sclera, Mucous membr. moist/pink Neck: Full range of motion, Normal Trachea alignment, Normal inspection, No Masses palpable Lymphatics: Normal Respiratory: Normal - CTA, Diminished Cardiovascular: Regular rate and rhythm, Normal S1, Normal S2, Good Pedal Pulses , PMI Not Lateralized, Chest Non Tender. negative: LE Edema GI: Normal bowel sounds, Soft, Non tender, No masses Extremities/Musculoskeletal: Tenderness (mild over pelvic cage, stable), Capillary Refill (normal), DJD. negative: Swelling, Clubbing, Cyanosis Skin: Warm,Dry and Intact, No breakdown, No significant lesion Neurological: Normal speech, Normal tone, Cranial nerves 3-12 NL, Gait Unsteady Psych/Mental Status: Normal Affect, Cooperative Lab/DI/Studies Reviewed: Laboratory Tests 05/28/16 05/28/16 05/28/16 06:35 06:35 06:35 WBC 11.8 H Hgb 10.1 L D Hct 30.3 L Plt Count 232 Sodium 125 L Potassium 4.9 Chloride 92 L Carbon Dioxide 28 Anion Gap 10 BUN 43 H Creatinine 1.40 H Estimated GFR (MDRD) 35 L Glucose 68 L Calculated Osmolality 251 L Calcium 8.1 L Vitamin D 25-Hydroxy Pending - Assessment (1) Hyponatremia Acute E87.1 - HYPO-OSMOLALITY AND HYPONATREMIA Comment/Plan: IV hydration with normal saline. Monitor electrolytes and sodium levels closely. (2) Ambulatory dysfunction Acute R26.2 - DIFFICULTY IN WALKING, NOT ELSEWHERE CLASSIFIED Comment/Plan: Plan: Needs physical therapy. Consult orthopedic surgeon for opinion. Patient does not recall falling, but fracture pattern is that of one who slipped and fell onto buttocks in sitting position. She has complained of pain for 2-3 weeks. Fractures are probably subacute. Consult physical therapy for evaluation and treatment. (3) Fracture of inferior pubic ramus Acute S32.599A - OTH FRACTURE OF UNSP PUBIS, INIT ENCNTR FOR CLOSED FRACTURE Qualifiers: Encounter type: initial encounter Fracture type: closed Laterality: left Fracture healing: F Qualified Code(s): S32.592A - Other specified fracture of left pubis, initial encounter for closed fracture Comment/Plan: Noted on CT. Probably related to a fall the patient does not remember. Is likely the cause of her inability to walk. Patient does not recall falling, but fracture pattern is that of one who slipped and fell onto buttocks in sitting position. She has complained of pain for 2-3 weeks. Fractures are probably subacute. Plan:Consult orthopedic surgeon for opinion. If orthopedic surgeon approves, consult physical therapy evaluation and treatment. P.r.n. IV pain medication. (4) Fracture of left superior pubic ramus Acute S32.512A - FRACTURE OF SUPERIOR RIM OF LEFT PUBIS, INIT FOR CLOS FX Qualifiers: Encounter type: initial encounter Fracture type: closed Fracture healing : F Qualified Code(s): S32.512A - Fracture of superior rim of left pubis, initial encounter for closed fracture Comment/Plan: Noted on CT. Is likely the cause of her inability to walk. Plan:Consult orthopedic surgeon for opinion. If orthopedic surgeon approves, consider physical therapy evaluation and treatment. P.r.n. IV pain medication. (5) Sacral insufficiency fracture Acute M84.48XA - PATHOLOGICAL FRACTURE, OTHER SITE, INIT ENCNTR FOR FRACTURE Qualifiers: Encounter type: initial encounter Fracture healing: F Qualified Code(s): M84.48XA - Pathological fracture, other site, initial encounter for fracture Comment/Plan: Noted on CT. Sacral fracture. Could be pathological, but could also be related to a fall that patient does not remember. Could be contributing to her inability to walk. Plan: Consult orthopedic surgeon for opinion. If orthopedic surgeon approves, consider physical therapy evaluation and treatment. P.r.n. IV pain medication. (6) CKD (chronic kidney disease) stage 4, GFR 15-29 ml/min Chronic N18.4 - CHRONIC KIDNEY DISEASE, STAGE 4 (SEVERE) Comment/Plan: Baseline GF is 17-28. Admission GFR is 30. Baseline Cr is 1.9 - 2.4. Admission Cr is 1.6. CKD with slightly improved Cr. Avoid nephrotoxins. Monitor Cr levels. (7) Compression fracture of thoracic vertebra, non-traumatic Chronic M48.54XA - COLLAPSED VERTEBRA, NEC, THORACIC REGION, INIT Qualifiers: Encounter type: subsequent encounter Fracture healing: with routine healing Qualified Code(s): M48.54XD - Collapsed vertebra, not elsewhere classified, thoracic region, subsequent encounter for fracture with routine healing Comment/Plan: Patient has already had vertebroplasty of thoracic vertebrae done. (8) UTI (urinary tract infection) Acute N39.0 - URINARY TRACT INFECTION, SITE NOT SPECIFIED Qualifiers: Urinary tract infection type: acute cystitis Hematuria presence: without hematuria Indwelling urinary catheter type: I Encounter type: E Qualified Code(s): N30.00 - Acute cystitis without hematuria Comment/Plan: culture urine, await results Case Care Discussed with: Patient, Nursing Staff Education/Counseling Given To: Patient, Family Member Education/Counseling Given Regarding: Diagnosis, Treatment, Prognosis Critical Care: No Couseling Time (>50% in counseling/coordination): Yes Code: 19366 (12+)
[2016-05-29] MEDS: NS 1,000 ML IV SCH ×4 (03:04→17:10)
[2016-05-29] MEDS: OXYCODONE HCL 5 MG TABLET PO PRN ×3 (04:59→18:26)
[2016-05-29] MEDS: OXYBUTYNIN 5 MG TAB PO SCH ×2 (09:01→20:54)
[2016-05-29] MEDS: CHOLECALCIFEROL 1000 UNITS TAB PO SCH (09:01)
[2016-05-29 10:33] LABS: BLOOD UREA NITROGEN 34 MG/DL (7-17); CALCIUM 8.1 MG/DL (8.4-10.2); CALCULATED OSMOLALITY 261 MOs/Kg (270-290); CHLORIDE 100 mEq/L (98-107); GLUCOSE 105 MG/DL (70-99); SODIUM LEVEL 131 mEq/L (137-146)
--- NOTE | 2016-05-29 10:53 | GENMEDPROG ---
Chief Complaint: hyponatremia, pelvic fractures, sacral fracture, osteoporosis, dementia ( vascular) Subjective Note: patient continues to complain of bilateral hip pain. Currently: Reports: Jose M PT/OT, Other (pain in buttocks/hips). Denies: Ambulating - Physical Examination Vital Signs and I&O: Last Vital Signs Temp 98.3 F 05/29/16 09:35 Pulse 95 05/29/16 09:35 Resp 18 05/29/16 09:35 BP 151/68 05/29/16 09:35 Pulse Ox 93 05/29/16 09:35 Oxygen Pulse Oxygen Saturation 93 O2 Device Room Air Oxygen Flow Rate Fraction of Inspired Oxygen ( FIO2) Intake & Output 05/26/16 05/27/16 05/28/16 05/29/16 23:59 23:59 23:59 23:59 Intake Total 2804 2077 Output Total 2175 600 Balance 629 1477 Patient's weight 53.433 kg 54.114 kg General: Alert, Cooperative, Mild distress, Weakness, Fatigue HEENT: Normal, PERRLA, EOMI, Anicteric Sclera, Mucous membr. moist/pink Neck: Full range of motion, Normal Trachea alignment, Normal inspection, No Masses palpable Lymphatics: Normal Respiratory: Normal - CTA, Diminished Cardiovascular: Regular rate and rhythm, Normal S1, Normal S2, Good Pedal Pulses , PMI Not Lateralized, Chest Non Tender. negative: LE Edema GI: Normal bowel sounds, Soft, Non tender, No masses Extremities/Musculoskeletal: Tenderness (mild over pelvic cage, stable), Capillary Refill (normal), DJD, FROM. negative: Swelling, Clubbing, Cyanosis Skin: Warm,Dry and Intact, No breakdown, No significant lesion Neurological: Normal speech, Normal tone, Cranial nerves 3-12 NL, Gait Unsteady Psych/Mental Status: Normal Affect, Cooperative, Confused (forgetful) Lab/DI/Studies Reviewed: Laboratory Tests 05/29/16 09:21 Sodium 131 L Potassium 4.5 Chloride 100 Carbon Dioxide 26 Anion Gap 10 BUN 34 H Creatinine 1.40 H Estimated GFR (MDRD) 35 L Glucose 105 H Calculated Osmolality 261 L Calcium 8.1 L Microbiology 05/27/16 21:50 Blood Blood Culture - Preliminary No growth aerobically or anaerobically at 24-48 hours. NORMAL VALUE = No growth 05/27/16 21:45 Blood Blood Culture - Preliminary No growth aerobically or anaerobically at 24-48 hours. NORMAL VALUE = No growth 05/27/16 18:54 Urine - Clean Catch - Midstream Urine Culture - Preliminary Staphylococcus species - Assessment (1) Hyponatremia Acute E87.1 - HYPO-OSMOLALITY AND HYPONATREMIA Comment/Plan: IV hydration with normal saline. Monitor electrolytes and sodium levels closely. (2) Ambulatory dysfunction Acute R26.2 - DIFFICULTY IN WALKING, NOT ELSEWHERE CLASSIFIED Comment/Plan: Plan: Needs physical therapy. Consult orthopedic surgeon for opinion. Patient does not recall falling, but fracture pattern is that of one who slipped and fell onto buttocks in sitting position. She has complained of pain for 2-3 weeks. Fractures are probably subacute. Consult physical therapy for evaluation and treatment. (3) Fracture of inferior pubic ramus Acute S32.599A - OTH FRACTURE OF UNSP PUBIS, INIT ENCNTR FOR CLOSED FRACTURE Qualifiers: Encounter type: initial encounter Fracture type: closed Laterality: left Fracture healing: F Qualified Code(s): S32.592A - Other specified fracture of left pubis, initial encounter for closed fracture Comment/Plan: Noted on CT. Probably related to a fall the patient does not remember. Is likely the cause of her inability to walk. Patient does not recall falling, but fracture pattern is that of one who slipped and fell onto buttocks in sitting position. She has complained of pain for 2-3 weeks. Fractures are probably subacute. Consulted orthopedic surgeon for opinion. consulted physical therapy for evaluation and treatment. P.r.n. IV pain medication. (4) Fracture of left superior pubic ramus Acute S32.512A - FRACTURE OF SUPERIOR RIM OF LEFT PUBIS, INIT FOR CLOS FX Qualifiers: Encounter type: initial encounter Fracture type: closed Fracture healing : F Qualified Code(s): S32.512A - Fracture of superior rim of left pubis, initial encounter for closed fracture Comment/Plan: Noted on CT. Is likely the cause of her inability to walk. Plan:Consult orthopedic surgeon for opinion. continue physical therapy evaluation and treatment. P.r.n. IV pain medication. (5) Sacral insufficiency fracture Acute M84.48XA - PATHOLOGICAL FRACTURE, OTHER SITE, INIT ENCNTR FOR FRACTURE Qualifiers: Encounter type: initial encounter Fracture healing: F Qualified Code(s): M84.48XA - Pathological fracture, other site, initial encounter for fracture Comment/Plan: Noted on CT. Sacral fracture. Could be pathological, but could also be related to a fall that patient does not remember. Could be contributing to her inability to walk. Consulted orthopedic surgeon for opinion; continue physical therapy evaluation and treatment. P.r.n. IV pain medication. (6) CKD (chronic kidney disease) stage 4, GFR 15-29 ml/min Chronic N18.4 - CHRONIC KIDNEY DISEASE, STAGE 4 (SEVERE) Comment/Plan: Baseline GF is 17-28. Admission GFR is 30. Baseline Cr is 1.9 - 2.4. Admission Cr is 1.6. CKD with slightly improved Cr. Avoid nephrotoxins. Monitor Cr levels. (7) Compression fracture of thoracic vertebra, non-traumatic Chronic M48.54XA - COLLAPSED VERTEBRA, NEC, THORACIC REGION, INIT Qualifiers: Encounter type: subsequent encounter Fracture healing: with routine healing Qualified Code(s): M48.54XD - Collapsed vertebra, not elsewhere classified, thoracic region, subsequent encounter for fracture with routine healing Comment/Plan: Patient has already had vertebroplasty of thoracic vertebrae done. (8) UTI (urinary tract infection) Acute N39.0 - URINARY TRACT INFECTION, SITE NOT SPECIFIED Qualifiers: Urinary tract infection type: acute cystitis Hematuria presence: without hematuria Indwelling urinary catheter type: I Encounter type: E Qualified Code(s): N30.00 - Acute cystitis without hematuria Comment/Plan: culture urine, await results Additional Notes: Recommend short term rehabilitation, then permanent placement in extended care facility, since patient does not recall fall, yet clearly has had more than one fall in recent past. Case Care Discussed with: Patient, Family, Nursing Staff, Resource Management Education/Counseling Given To: Patient, Family Member Education/Counseling Given Regarding: Diagnosis, Treatment, Prognosis Total Time: 45 min Critical Care: No Couseling Time (>50% in counseling/coordination): No Code: 70391 (12+)
[2016-05-29] MEDS: ENOXAPARIN 30 MG/0.3 ML PFS SQ SCH (17:10)
[2016-05-29] MEDS: RANITIDINE 150 MG TAB PO SCH (20:54)
[2016-05-29] MEDS: GABAPENTIN 100 MG CAP PO SCH (20:54)
[2016-05-30] MEDS: NS 1,000 ML IV SCH ×3 (02:03→09:53)
[2016-05-30] MEDS: OXYCODONE HCL 5 MG TABLET PO PRN ×3 (02:04→17:00)
[2016-05-30 07:12] LABS: BLOOD UREA NITROGEN 24 MG/DL (7-17); CALCULATED OSMOLALITY 256 MOs/Kg (270-290); CHLORIDE 104 mEq/L (98-107); GLUCOSE 88 MG/DL (70-99); SODIUM LEVEL 131 mEq/L (137-146)
[2016-05-30] MEDS: OXYBUTYNIN 5 MG TAB PO SCH (08:22)
[2016-05-30] MEDS: CHOLECALCIFEROL 1000 UNITS TAB PO SCH (08:22)
[2016-05-30 09:29] VITALS: BP 122/57; PULSE 84; TEMP 98.5
--- NOTE | 2016-05-30 09:54 | PCM.DCS92 ---
- Final/Secondary Discharge Diagnosis (1) Hyponatremia Acute E87.1 - HYPO-OSMOLALITY AND HYPONATREMIA Present on Admission: Yes Comment: Received IV hydration with normal saline. Currently serum sodium level is 131. (2) Ambulatory dysfunction Acute R26.2 - DIFFICULTY IN WALKING, NOT ELSEWHERE CLASSIFIED Present on Admission: Yes Comment: Needs physical therapy. Patient does not recall falling, but fracture pattern is that of one who slipped and fell onto buttocks in sitting position. She has complained of pain for 2-3 weeks. Fractures are probably subacute. Consult physical therapy for evaluation and treatment. (3) Fracture of inferior pubic ramus Acute S32.599A - OTH FRACTURE OF UNSP PUBIS, INIT ENCNTR FOR CLOSED FRACTURE Present on Admission: Yes initial encounter closed left F S32.592A - Other specified fracture of left pubis, initial encounter for closed fracture Comment: Noted on CT. Probably related to a fall the patient does not remember. Is likely the cause of her inability to walk. Patient does not recall falling, but fracture pattern is that of one who slipped and fell onto buttocks in sitting position. She has complained of pain for 2-3 weeks. Fractures are probably subacute. Consulted orthopedic surgeon for opinion. Consulted physical therapy for evaluation and treatment. P.r.n. pain medication. (4) Fracture of left superior pubic ramus Acute S32.512A - FRACTURE OF SUPERIOR RIM OF LEFT PUBIS, INIT FOR CLOS FX Present on Admission: Yes initial encounter closed F S32.512A - Fracture of superior rim of left pubis, initial encounter for closed fracture Comment: Noted on CT. Is likely the cause of her inability to walk. Continue physical therapy evaluation and treatment. P.r.n. pain medication. (5) Sacral insufficiency fracture Acute M84.48XA - PATHOLOGICAL FRACTURE, OTHER SITE, INIT ENCNTR FOR FRACTURE Present on Admission: Yes initial encounter F M84.48XA - Pathological fracture, other site, initial encounter for fracture Comment: Noted on CT. Sacral fracture. Could be pathological, but could also be related to a fall that patient does not remember. Contributing to her inability to walk. Continue physical therapy evaluation and treatment. P.r.n. pain medication. (6) CKD (chronic kidney disease) stage 4, GFR 15-29 ml/min Chronic N18.4 - CHRONIC KIDNEY DISEASE, STAGE 4 (SEVERE) Present on Admission: Yes Comment: Baseline GFR is 17-28. Current GFR is 47. Baseline Cr is 1.9 - 2.4. Admission Cr was 1.6. CKD with slightly improved Cr-1.1 at discharge. Avoid nephrotoxins. Monitor renal function intermittently. (7) UTI (urinary tract infection) Acute N39.0 - URINARY TRACT INFECTION, SITE NOT SPECIFIED acute cystitis without hematuria I E N30.00 - Acute cystitis without hematuria Comment: urine culture shows Staph warneri- sensitive to Bactrim (resistant to oxacillin) She has been on vanc to which it is sensitive. (8) Compression fracture of thoracic vertebra, non-traumatic Chronic M48.54XA - COLLAPSED VERTEBRA, NEC, THORACIC REGION, INIT Present on Admission: No subsequent encounter with routine healing M48.54XD - Collapsed vertebra, not elsewhere classified, thoracic region, subsequent encounter for fracture with routine healing Comment: Patient has already had vertebroplasty of thoracic vertebrae done. Discharge Disposition: [facility] Discharge Condition: Fair Cognitive Discharge Status: Cognitive deficits prevent decision making for safety. Fuctional Discharge Status: Walker Assistance, Fall Risk, Deconditioning, Ambulatory Dysfunction Physician Follow up/Referrals: Guanakito Flores MD [Primary Care Provider] - One Week Home Medications / New Prescriptions: New Acetaminophen Tablet [TYLENOL Tablet] 650 mg PO Q6H PRN #100 tablet PRN Reason: Mild Pain Or Fever Above 100.4 Docusate Sodium [Colace] 100 mg PO BID PRN #60 capsule PRN Reason: Stool Softener Lisinopril [Zestril] 2.5 mg PO DAILY #30 tablet Trimethoprim-Sulfamethoxazole [Septra DS] 1 tab PO BID #14 tablet Continue Oxybutynin [Ditropan] 5 mg PO BID Gabapentin [Neurontin] 100 mg PO HS Cholecalciferol (Vitamin D3) [Vitamin D3] 1,000 unit PO DAILY Oxycodone Immediate Release [Oxycodone Immediate Release (OxyIR)] 10 mg PO Q6H PRN #60 tablet PRN Reason: Pain Ranitidine [Zantac] 150 mg PO HS #30 O2 Device: Room Air Diet at Discharge: Heart Healthy Activity: As Tolerated, No Driving Call Office For: Worsening Symptoms, Fever over 101 F, Pain Uncontrolled By Meds Discontinue use of:: Alcohol, All Types of Tobacco - DC Summary Notes Hospital Course Note:: Discharge summary on patient named BERNARD CEVALLOS admitted to [facility] on 05/27/16 by Yefri Ac MD. Date of discharge is []. Code: 66095 (>30min.) - Physical Exam Vital Signs: Last Vital Signs Temp 98.5 F 05/30/16 09:00 Pulse 84 05/30/16 09:00 Resp 18 05/30/16 09:00 BP 122/57 L 05/30/16 09:00 Pulse Ox 97 05/30/16 09:00 Oxygen Pulse Oxygen Saturation 97 O2 Device Room Air Oxygen Flow Rate Fraction of Inspired Oxygen ( FIO2) Constitutional: No apparent distress, Alert Oriented to: Time, Person, Place - HEENT Head: Normal Eye: Normal Oropharynx: Normal Tympanic Membrane: Dull TMJ: Normal Nose: No Symptoms Reported - Respiratory/Cardiovascular Respiratory: Normal - CTA, Diminished Cardiovascular: Normal (regular rhythm and rate) - GI Auscultation: Normal Palpation: Normal Tenderness: Non tender Rectal Exam: Deferred - Musculoskeletal Back: Other (NOTED INJECTION WOUND TO RIGHT BUTTOCK; NO SWELLING/DISCHARGE OR SIGNS OF INFECTION AT THE SITE; PT STATES THAT THE BUTTOCK IS "SORE") Extremities: Normal, Other (NOTE: FEMORAL/PEDAL PULSES EQUAL AND NORMAL DERMATOMAL SENSATIONS INTACT DORSI/PLANTAR FLEXION STRONG/EQUAL HIP EXTENSION EQUAL, BUT WITH PAIN TO RIGHT HIP; SKIN P/W/D W/OUT PETECHIA/SWELLING) - Integumentary Skin: Warm, Dry Lymphatics: Normal - Neurologic Memory Impaired: Short-term Motor Function: Abnormal (able to ambulate, but antalgic gait, slow & stiff) Cranial Nerve: Normal Cerebellar: Normal Mood Description: Normal Thought: Coherent Perception: Normal
[2016-05-30] MEDS ORDERED: TRIMETHOPRIM-SULFAMETHOXAZOLE TAB PO SCH (10:00)
== END 2016-05-30 17:06 | DRG 536 ==
LOC: ED 13:42 → MPS3 20:33
PROVIDERS: ADMIT Internal Medicine; ATTEND Family Medicine
DX: S32.512A Fracture of superior rim of left pubis, initial encounter for closed fracture (principal); N18.4 Chronic kidney disease, stage 4 (severe); F03.90 Unspecified dementia, unspecified severity, without behavioral disturbance, psychotic disturbance, mood disturbance, and anxiety; M48.54XA Collapsed vertebra, not elsewhere classified, thoracic region, initial encounter for fracture; E87.1 Hypo-osmolality and hyponatremia; N30.00 Acute cystitis without hematuria; M84.48XA Pathological fracture, other site, initial encounter for fracture; S32.592A Other specified fracture of left pubis, initial encounter for closed fracture; R26.2 Difficulty in walking, not elsewhere classified; W19.XXXA Unspecified fall, initial encounter; Y93.9 Activity, unspecified; I12.9 Hypertensive chronic kidney disease with stage 1 through stage 4 chronic kidney disease, or unspecified chronic kidney disease; B95.7 Other staphylococcus as the cause of diseases classified elsewhere; Z87.440 Personal history of urinary (tract) infections; K21.9 Gastro-esophageal reflux disease without esophagitis; M19.90 Unspecified osteoarthritis, unspecified site; Z88.5 Allergy status to narcotic agent; Z88.8 Allergy status to other drugs, medicaments and biological substances; Z79.899 Other long term (current) drug therapy
CPT/HCPCS: 36415; 71010; 72192; 80048; 80053; 81001; 82306; 82570; 83930; 83935; 84300; 85025; 85027; 87040; 87077; 87086; 87186; 96372; 96374; 96375; 97162; 99284; J1170; J1650; J2405; J3370; J3490; J7070